=== PATIENT | female | born 1980 | race African-American/Black ===

== ENCOUNTER 2017-08-19 07:41 | Emergency (ER) | payer OTHER ==
[~2017-08-19] VITALS: Ht 180.3 cm; Wt 71.6 kg
[~2017-08-19 07:41] MED LIST: VICODIN 5-3001 EACH PO
[2017-08-19 08:10] LABS: HEMATOCRIT 37.4 % (36.0-46.0); MCH 30.3 PG (29.0-34.0); MCHC 34.8 G/DL (30.0-36.0); MCV 87.2 FL (83-99); MEAN PLAT.VOLUME 9.8 uM^3 (9.5-12.4); PLATELET COUNT 163 K/uL (156-360); RBC DIS.WIDTH-CV 11.9 % (11.8-14.6); RBC DIS.WIDTH-SD 38.2 % (39-53); RED BLOOD COUNT 4.29 M/uL (3.80-5.20); WHITE BLOOD COUNT 4.5 K/uL (4.1-10.2)
[2017-08-19 08:43] LABS: CHLORIDE 105 mEq/L (99-109); POTASSIUM 3.7 mEq/L (3.7-5.4); SODIUM 139 mEq/L (136-147)
[2017-08-19 08:44] LABS: GLUCOSE 83 mg/dL (70-99)
[2017-08-19 08:45] LABS: ANION GAP 6 MEQ/L (2-14)
[2017-08-19 08:46] LABS: TOTAL BILIRUBIN 0.8 mg/dL (0.0-1.0)
[2017-08-19 08:48] LABS: ALKALINE PHOSPHATASE 40 IU/L (3-129); GFR ESTIMATE (CALCULATED) > 59 mL/min/
[2017-08-19 08:49] LABS: UREA NITROGEN (BUN) 5 mg/dL (9-23)
[2017-08-19 08:49] LABS: ADD MIUA? YES; BILIRUBIN NEGATIVE; BLOOD SMALL; COLOR YELLOW ((YELLOW)); GLUCOSE (STRIP) NEGATIVE; KETONES NEGATIVE; LEUKOCYTES NEGATIVE; NITRITE NEGATIVE; PROTEIN (STRIP) NEGATIVE; SPECIFIC GRAVITY 1.016 (1.000-1.030); UROBILINOGEN 0.2 MG/DL (0.2-1.0)
[2017-08-19 08:51] LABS: LIPASE 18 U/L (1.0-51.0)
[2017-08-19 08:52] LABS: BACTERIA RARE /HPF; EPITHELIAL CELLS 1+ /HPF; MUCUS TRACE /LPF; RED BLOOD CELLS 0-5 /HPF (0-5); UCUL ADDED? NO; WHITE BLOOD CELLS 0-5 /HPF (0-5)
[2017-08-19 08:55] LABS: CREATINE KINASE 56 IU/L (1-294)
[2017-08-19 08:57] LABS: QUANTITATIVE HCG < 4.0 MIU/ML
[2017-08-19] MEDS ORDERED: ZOFRAN ODT4 MG PO (09:59)
[2017-08-19] MEDS ORDERED: LEVSIN-SL0.125 MG SL (09:59)
[2017-08-19 10:31] VITALS: BP 105/68
[2017-08-20] MEDS ORDERED: BENTYL10 MG PO (02:56)
== END 2017-08-19 10:41 | disposition home or self-care (01) ==
LOC: EME 07:41
DX: A08.4 Viral intestinal infection, unspecified (principal); M79.7 Fibromyalgia; Z88.5 Allergy status to narcotic agent
CPT/HCPCS: 80053; 81003; 82550; 83690; 84702; 85027; 87493; 87506; J2405; J7030

== ENCOUNTER 2017-08-19 23:26 | Emergency (ER) | payer OTHER ==
[~2017-08-19] VITALS: Ht 180.3 cm; Wt 73.6 kg
[~2017-08-19 23:26] MED LIST changes: +LEVSIN-SL0.125 MG SL; +ZOFRAN ODT4 MG PO
[2017-08-20 00:51] LABS: C DIFF TOXIN NEGATIVE (NEGATIVE)
[2017-08-20 00:52] LABS: PROBE CHECK PASS; SPECIMEN PROCESSING CONTROL PASS
[2017-08-20] MEDS ORDERED: BENTYL10 MG PO (02:56)
[2017-08-20 03:01] VITALS: BP 116/72
== END 2017-08-20 03:12 | disposition home or self-care (01) ==
LOC: EME 23:26
PROVIDERS: Physician Assistant
DX: A04.5 Campylobacter enteritis (principal); M79.7 Fibromyalgia
CPT/HCPCS: 74177; 87493; 87506; 99281; 99284; J2270; J2405; J7030